=== PATIENT | male | born 1995 | race Caucasian/White ===

== ENCOUNTER 2023-12-23 18:09 | Emergency (ER) | payer OTHER ==
[~2023-12-23] VITALS: Ht 170.2 cm; Wt 91.0 kg
[2023-12-23 18:16] VITALS: BP 144/72; PULSE 102; RESP 18; TEMP 98.4; O2SAT 99
[2023-12-23] MEDS ORDERED: IBUP-2029 MT (19:07)
== END 2023-12-23 19:40 | disposition home or self-care (01) ==
LOC: ER 18:09
DX: S29.011A Strain of muscle and tendon of front wall of thorax, initial encounter (principal); X58.XXXA Exposure to other specified factors, initial encounter; Y93.89 Activity, other specified; Y92.89 Other specified places as the place of occurrence of the external cause; Y99.8 Other external cause status
CPT/HCPCS: 71045; 93005; 99283